=== PATIENT | female | born 1970 | race Caucasian/White ===

== ENCOUNTER 2016-07-19 15:38 | Emergency (ER) | payer BC ==
[2016-07-19 16:09] VITALS: BP 151/81; PULSE 75; RESP 14; TEMP 99; O2SAT 96
[2016-07-19 16:21] LABS: COLOR YELLOW; LEUKOCYTE ESTERASE,URINE 1+ (NEGATIVE); NITRITE,URINE NEGATIVE (NEGATIVE)
[2016-07-19 16:39] LABS: RBC,URINE 0-1 /hpf (0-3)
[2016-07-19 16:40] LABS: BACTERIA 3+ /hpf (NONE SEEN)
--- NOTE | 2016-07-19 16:48 | UCPHY ---
[id number]/11/17 16:12 HPI/ROS: CHIEF COMPLAINT: Dysuria, urgency with urination HISTORY OF PRESENT ILLNESS: 46-year-old female presents to urgent care by private vehicle with dysuria, urgency and frequency with urination over the last few days. Patient was treated for a UTI 6 weeks ago with Cipro. Her symptoms improved and then she developed recurring symptoms close to 1 week ago. She denies back pain or abdominal pain. Denies fevers or chills. Denies chest pain or difficulty breathing. She denies . Last menstrual period was 3 weeks ago. REVIEW OF SYSTEMS: Constitutional: No fever, no chills. Eyes: No double or blurry vision. ENT: No sore throat. Respiratory: No cough, no shortness of breath. Cardiac: No chest pain. Gastrointestinal: No abdominal pain, vomiting or diarrhea. Genitourinary: Dysuria, urgency, frequency Musculoskeletal: No neck or back pain. Skin: No rashes. Neurological: No headache. (Umu Bruce) Past Medical/Surgical History: Urinary tract infection 6 weeks ago (Umu Bruce) Social History: Single and lives in [place] (Umu Bruce) Physical Exam: General Appearance: Alert, no distress. Afebrile. Nontoxic appearing. Eyes: Pupils equal and round. Extraocular motions are all intact. ENT: Mouth: Mucous membranes moist. Respiratory: No wheezing, rhonchi, or rales, lungs are clear to auscultation. Cardiovascular: Regular rate and rhythm. Gastrointestinal: Abdomen is soft and nontender, no masses, no rebound or guarding, bowel sounds normal. No CVA tenderness bilaterally. Neurological: Alert and oriented x 3, cranial nerves II through XII grossly intact Skin: Warm and dry, no rashes. Musculoskeletal: Nontender to palpate along the cervical, thoracic or lumbar spine. Neck is supple. Extremities: Full range of motion and no peripheral edema. Psychiatric: Patient is oriented X 3, there is no agitation. (Umu Bruce) Constitutional: Initial Vital Signs Temperature (C) 37.2 C 07/19/16 16:03 Heart Rate 75 07/19/16 16:03 Respiratory Rate 14 07/19/16 16:03 Blood Pressure 151/81 H 07/19/16 16:03 O2 Sat (%) 96 07/19/16 16:03 O2 Delivery Mode Room Air Allergies/Adverse Reactions: No Known Allergies Allergy (Unverified 07/19/16 16:08) Home Medications: Medication Instructions Recorded Ciprofloxacin [Cipro 500 mg] 500 mg PO BID #10 tab 07/19/16 Phenazopyridine HCl [Pyridium] 200 mg PO Q8PRN PRN #6 tab 07/19/16 Wellbutrin Xl 07/19/16 Medical Decision Making ED Course/Re-evaluation: 46-year-old female presents with dysuria, urgency and frequency with urination. Urinalysis reveals 3+ bacteria with 5-10 white blood cells. Urine cultures pending. The patient will be treated with Cipro. Reviewing her records from her previous visit for urinary tract infection on May 24, 2016, she was sensitive to levofloxacin. Patient was given a prescription for Cipro 500 mg twice daily for 5 days. She was told to return if she developed fever, vomiting , back pain, or if she felt worse in any way. (Umu Bruce) Differential Diagnosis: Including but not limited to urinary tract infection, pyelonephritis, kidney stone, acute appendicitis (Umu Bruce) Other Provider: The patient was evaluated and managed by the physician metal forger's assistant. I have reviewed this chart and I agree with the findings and plan of care as documented , as indicated by my signature. I am the secondary supervising physician. ( Liz Anne) - Data Points Laboratory Results: 07/19/16 16:15 Urine Color YELLOW Urine Appearance HAZY Urine pH 7.0 (5.0-7.5) Ur Specific [place] <= 1.005 (1.002-1.030) Urine Protein TRACE H (NEGATIVE) Urine Ketones NEGATIVE (NEGATIVE) Urine Blood 2+ H (NEGATIVE) Urine Nitrate NEGATIVE (NEGATIVE) Urine Bilirubin NEGATIVE (NEGATIVE) Urine Urobilinogen 0.2 EU (0.2-1.0) Ur Leukocyte Esterase 1+ H (NEGATIVE) Urine RBC 0-1 /hpf (0-3) Urine WBC 3-5 H /hpf (0-3) Ur Epithelial Cells 1+ /lpf (NONE-1+) Urine Bacteria 3+ H /hpf (NONE SEEN) Urine Glucose NEGATIVE (NEGATIVE) Departure - Departure Disposition: Home, Routine, Self-Care Clinical Impression: Urinary tract infection Instructions: Urinary Tract Infection in Women (ED) Additional Instructions: Cipro 500 mg twice daily for 5 days. Per radium as needed for pain with urination and urinary frequency. Return or go to the emergency department if he develops fever, vomiting, back pain, or if you feel worse in any way. Referrals: Herbert Hernandez DO [Doctor of Osteopathy] - As per Instructions Prescriptions: Ciprofloxacin [Cipro 500 mg] 500 mg PO BID #10 tab Phenazopyridine HCl [Pyridium] 200 mg PO Q8PRN PRN #6 tab PRN Reason: P.r.n. dysuria - PQRS PQRS Measurement: Not applicable (Umu Bruce
== END 2016-07-19 16:56 | disposition home or self-care (01) ==
LOC: CED 15:38
DX: N39.0 Urinary tract infection, site not specified (principal); Z87.440 Personal history of urinary (tract) infections
CPT/HCPCS: 81003-PO; 81015-PO; 99214-PO; G0463-PO

== ENCOUNTER 2016-10-01 11:39 | Emergency (ER) | payer BC ==
[2016-10-01 12:42] VITALS: BP 128/52; RESP 16; TEMP 99.1
[2016-10-01 12:45] VITALS: PULSE 74; O2SAT 95
[2016-10-01 12:46] LABS: COLOR YELLOW; LEUKOCYTE ESTERASE,URINE NEGATIVE (NEGATIVE); NITRITE,URINE NEGATIVE (NEGATIVE); PH,URINE 7.5 (5.0-7.5)
--- NOTE | 2016-10-01 13:23 | UCPHY ---
H & P Time Seen by Provider: 10/01/16 12:50 Patient Type: Established HPI/ROS: This patient complains of dysuria, frequency and urgency. Her symptoms started 3 days prior to arrival in persist. She thinks she has a UTI and she reports frequent previous UTIs. She notes no exacerbating or alleviating factors for his symptoms. ROS: No fevers or chills. No significant malaise. No other constitutional symptoms. HEENT: No complaints pulmonary: No complaints cardiovascular: No complaints GI: No nausea or vomiting : No vaginal discharge. Musculoskeletal : No back pain 7 point ROS is otherwise negative. Smoking Status: Never smoked Physical Exam: General Appearance: Alert, no distress. Eyes: Pupils equal and round no pallor or injection. ENT, Mouth: Mucous membranes moist. Respiratory: There are no retractions, lungs are clear to auscultation. Cardiovascular: Regular rate and rhythm. Gastrointestinal: Mild suprapubic tenderness with no guarding or rebound. Back: No CVA tenderness Skin: Warm and dry, no rashes. Psychiatric: Mood and affect: Slightly anxious but otherwise normal. DIFFERENTIAL DIAGNOSIS: After history and physical exam differential diagnosis was considered for cystitis, interstitial cystitis, urethral irritation, dehydration, ascitic urine Constitutional: Initial Vital Signs Temperature (C) 37.3 C 10/01/16 12:40 Heart Rate 74 10/01/16 12:40 Respiratory Rate 16 10/01/16 12:40 Blood Pressure 128/52 H 10/01/16 12:40 O2 Sat (%) 95 10/01/16 12:40 O2 Delivery Mode Room Air Allergies/Adverse Reactions: No Known Allergies Allergy (Unverified 10/01/16 12:40) Home Medications: Medication Instructions Recorded Wellbutrin Xl 07/19/16 Phenazopyridine HCl [Pyridium 200 mg PO TID PRN #6 tab 10/01/16 200mg (RX)] MDM/Departure - MDM Diagnostics: Urinalysis is normal. ED Course/Re-evaluation: This patient's urinalysis is entirely normal. I counseled regarding this. She is upset that she would not give antibiotics but in the think is indicated given absolutely normal urinalysis. I printed out the urinalysis result for her. I counseled her to return if she a develops any significant worsening courage her drink a lot of fluids in the meantime. - Depart Disposition: Home, Routine, Self-Care Clinical Impression: Dysuria Condition: Good Instructions: Dysuria (ED) Additional Instructions: Diagnosis: Dysuria new Plan: Return for significant worsening symptoms despite peridium. Take pyridium if needed for discomfort Drink plenty fluids Prescriptions: Phenazopyridine HCl [Pyridium 200mg (RX)] 200 mg PO TID PRN #6 tab PRN Reason: dysuria Referrals: NONE *PRIMARY CARE P,. [Primary Care Provider] - As per Instructions - PQRS PQRS Measurement: NA
== END 2016-10-01 13:57 | disposition home or self-care (01) ==
LOC: CED 11:39
DX: R30.0 Dysuria (principal); R35.0 Frequency of micturition; R39.15 Urgency of urination
CPT/HCPCS: 81003-PO; G0463-PO

== ENCOUNTER → 2018-04-05 | Outpatient (CLI) | payer BC | LOC: FIMAGING 10:25 | PROVIDERS: ATTEND Urology | DX: R33.9 Retention of urine, unspecified (principal) ==